=== PATIENT | male | born 1950 | race Caucasian/White ===

== ENCOUNTER → 2020-10-13 | Outpatient (CLI) | payer MEDICARE, BC ==
[~2020-10-13] MED LIST: ALBU8.5H8 INH; ATOR40TA78 PO; AZEL137S4 NAS; BUDE0.5A INH; CHOL10003 PO; CITA40TA5 PO; EMPA25TA PO; GABA600T7 PO; INSU100V14 INJ; LEVO175T5 PO; MELA5TAB14 PO; MONT10TA17 PO; MULT-449 PO; NEBI20TA2 PO; OMEP40CA8 PO; TAMS-11 PO; UBID100C24 PO; VALS1TAB29 PO
[2020-10-13 10:40] LABS: ALANINE AMINOTRANSFERASE 36 U/L (12-78); ALBUMIN 3.7 g/dL (3.4-5.0); ANION GAP 7 mmol/L (5-15); CHLORIDE 106 mmol/L (98-107)
[2020-10-13 10:43] LABS: ALKALINE PHOSPHATASE 112 U/L (45-117); CREATININE 1.22 mg/dL (0.7-1.3); TOTAL PROTEIN 7.1 g/dL (6.4-8.2)
== END | disposition home or self-care (01) ==
LOC: STAR 09:31
PROVIDERS: ATTEND Otolaryngology
DX: Z01.818 Encounter for other preprocedural examination (principal); H04.222 Epiphora due to insufficient drainage, left side; H04.552 Acquired stenosis of left nasolacrimal duct
CPT/HCPCS: 36415; 80053; 93005